=== PATIENT | male | born 1945 | race Caucasian/White ===

== ENCOUNTER → 2017-03-27 | Outpatient (CLI) | payer MEDICARE, BC ==
[~2017-03-27] MED LIST: ASPI325T33 PO; ASPI81 PO; ASPI81TA81 PO; ATOR40TA16 PO; CARV10 PO; CARV6.252 PO; CENTCHW4 CHEW; CHLO25TA2 PO; CLOP75 PO; COUM5TAB PO; ESOM1CAP16 PO; FERR324T4 PO; FLUO20CA12 PO; FOLI-30 PO; FOLI1TAB PO; HYDR-3583 PO; LORT7.5T3 PO; NAPR-803 PO; NEXI40CA PO; OXYC1TAB63 PO; PRIN20TA2 PO; RANEXA; SIMV20 PO; SULF500 PO; TAB-TAB PO; TRAZ100T10 PO; VALS1TAB70 PO; VITA100T54 PO
[2017-03-27 10:12] LABS: AUTOMATED NEUTROPHIL # 2.4 TH/MM3 (1.8-7.7); BASOPHIL % 0.9 % (0.0-2.0); EOSINOPHIL # 0.1 TH/MM3 (0-0.4); EOSINOPHIL % 3.1 % (0.0-4.0); HEMATOCRIT 32.5 % (39.0-51.0); MEAN CELL VOLUME 95.9 FL (80.0-100.0); MEAN CORPUSCULAR HEMOGLOBIN 32.6 PG (27.0-34.0); MONO % 14.1 % (0.0-8.0); MONOCYTE # 0.6 TH/MM3 (0-0.9); NEUT % 58.9 % (16.0-70.0); PLATELET COUNT 188 TH/MM3 (150-450); RED BLOOD COUNT 3.39 MIL/MM3 (4.50-5.90); RED CELL DISTRIBUTION WIDTH 13.9 % (11.6-17.2); WHITE BLOOD COUNT 4.1 TH/MM3 (4.0-11.0)
[2017-03-27 10:23] LABS: BLOOD, URINE NEG (NEG); GLUCOSE,URINE NEG (NEG); HYALINE CAST, URINE 4 /lpf (RARE); KETONE, URINE NEG (NEG); MUCUS URINE FEW /lpf (OCC); NITRITE,URINE NEG (NEG); PH, URINE 5.5 (5.0-8.5); SQUAMOUS EPITHELIAL CELL URINE <1 /hpf (0-5); URINE COLOR YELLOW (YELLW/STRAW); URINE LEUKOCYTE ESTERASE NEG (NEG)
[2017-03-27 10:25] LABS: PROTHROMBIN TIME - PATIENT 10.4 SEC (9.8-11.6)
[2017-03-27 10:28] LABS: BILIRUBIN, URINE NEG (NEG)
[2017-03-27 10:44] LABS: BICARBONATE 26.4 MEQ/L (21.0-32.0); CALCIUM 8.7 MG/DL (8.5-10.1); CREATININE 1.6 MG/DL (0.60-1.30)
--- NOTE | 2017-03-27 14:51 | EKG ---
Date Performed: 03/27/2017 Time Performed: 09:22:08 PTAGE: 72 years EKG: Sinus rhythm . Possible anterior infarct - age undetermined Lateral T wave changes are nonspecific Since previous tracing, no significant change noted Abnormal ECG PREVIOUS TRACING : 08/07/2009 07.03 DOCTOR: Antoine Lucero Interpretating Date/Time 03/27/2017 14:50:36
== END ==
LOC: CPRE 08:21
PROVIDERS: ATTEND Orthopaedic Surgery Orthopaedic Surgery of the Spine
DX: Z01.812 Encounter for preprocedural laboratory examination (principal); Z01.810 Encounter for preprocedural cardiovascular examination; M16.12 Unilateral primary osteoarthritis, left hip; R94.31 Abnormal electrocardiogram [ECG] [EKG]; Z79.01 Long term (current) use of anticoagulants
CPT/HCPCS: 36415; 80048; 81001; 85025; 85610; 85730; 93005

== ENCOUNTER 2017-04-07 06:13 | Inpatient (IN) | payer MEDICARE, BC ==
[~2017-04-07] VITALS: Ht 180.3 cm; Wt 130.8 kg
[~2017-04-07 06:13] MED LIST changes: -ASPI325T33 PO; -ASPI81 PO; -CARV10 PO; -CLOP75 PO; -COUM5TAB PO; -FERR324T4 PO; -FOLI1TAB PO; -HYDR-3583 PO; -LORT7.5T3 PO; -NEXI40CA PO; -OXYC1TAB63 PO; -PRIN20TA2 PO; -RANEXA; -SIMV20 PO; -SULF500 PO; -TAB-TAB PO
[2017-04-07] MEDS ORDERED: GENTAMICIN SULFATE 80 MG/2 ML VIAL ONE (06:26)
[2017-04-07] MEDS ORDERED: CHLORHEXIDINE GLUCONATE 2 % 1 PACK (2 CLOTHS) TOPICAL PRN (07:15)
[2017-04-07] MEDS ORDERED: ceFAZolin 2 GM PREMIX 50 ML IV SCH (07:15)
[2017-04-07] MEDS ORDERED: SODIUM CHLORID 0.9% 500 ML IV PRN (07:15)
[2017-04-07] MEDS ORDERED: LACTATED RINGER'S 1000 ML IV PRN (07:15)
[2017-04-07] MEDS ORDERED: VANCOMYCIN 1000 MG/NS 250 ML (for <70 kg) IV SCH ×2 (07:15)
[2017-04-07] MEDS ORDERED: POVIDONE IODINE 5% (ANTISEPSIS KIT) 4 APPLICATIONS EACH NARE PRN (07:15)
[2017-04-07] MEDS ORDERED: CHLORHEXIDINE GLUCONATE 4% SOLN 120 ML BTL TOPICAL SCH (07:15)
[2017-04-07] MEDS ORDERED: METOPROLOL TARTRATE 25 MG TAB PO PRN (07:15)
[2017-04-07] MEDS ORDERED: ACETAMINOPHEN 1000 MG/100 ML 100 ML IV ONE (08:04)
[2017-04-07] MEDS ORDERED: SODIUM CHLORIDE 0.9% IV SCH ×2 (08:30→12:00)
[2017-04-07] MEDS ORDERED: EXPAREL PERI-ARTICULAR INJECTION (TOTAL VOL. 60 ML) P-ARTICULR SCH ×2 (08:30)
[2017-04-07] MEDS ORDERED: TRANEXAMIC ACID IV SCH ×2 (08:30→12:00)
[2017-04-07] MEDS ORDERED: ceFAZolin INJ 1,000 MG VIAL ONE (09:25)
--- NOTE | 2017-04-07 11:27 | PD.OP ---
cc: Clive Mckeon MD Operative Report Date of Surgery: Apr 07, 2017 Preoperative Diagnosis: Osteoarthritis left hip Postoperative Diagnosis: Same Procedure: Left total hip replacement arthroplasty Anesthesia: Gen. Surgeon: Clive Mckeon Tow Picker(s): OLVIN Lau Operation and Findings: EBL: 500 cc INDICATION: This patient presents with significant hip pain related to severe osteoarthritis of the left hip. Despite extensive conservative care this patient continues to be painful and now presents for surgical treatment. NOTE: Likely OLVIN Lau was present for the entire surgical procedure as my patent legal assistant. In my medical opinion her skill and care was necessary for the proper management of this patient. COMPONENTS: COMPANY: [email or web address] CUP: [place], 54 mm, 100 series, gription surface LINER: Altrx 36 mm, neutral STEM: [place], size 14, standard offset, hydroxyapatite-coated HEAD: 36 mm, +5, 12/14 taper PROCEDURE: This patient was brought to the operating room and anesthetized in the supine position and positioned on the fracture table with both legs held extended. The left hip and leg was scrubbed with alcohol followed by Hibiclens followed by ChloraPrep and draped sterilely. Antibiotics were given within routine time window and a timeout was done. A 4 inch incision was made starting 2 cm distal and 2 cm lateral to the anterior superior iliac spine. The fascia rzaa was opened longitudinally. The interval between the fascia raza and the rectus was opened down to the capsule of the hip joint. Retractors were positioned allowing good visualization of the capsule. This was opened longitudinally and flaps were created. Stay sutures were utilized. Exposure was excellent. The neck was cut at the proper location using fluoroscopy as a guide. The head was removed. Deep retractors were positioned allowing good visualization of the acetabulum. Acetabulum was deepened down to the floor starting with a proper size reamer and reaming up to 53 mm. A trial was utilized. Fluoroscopy was used to check position and confirmed satisfactory alignment. The rim was reamed with a 54 mm reamer and the final cup was positioned in approximately 20 of anteversion and 40-45 of abduction. Position was satisfactory. A single hole eliminator was positioned followed by the final liner. The lifting hook was utilized. The leg was dropped to the floor, maximally externally rotated and brought across the midline. Retractors were positioned. A box osteotome was utilized followed by progressive broaching to the proper stem size. Trial reduction showed excellent alignment and fit. With 60 of external rotation the leg was dropped to the floor without evidence of anterior subluxation. The wound was irrigated. The final stem was inserted and was found to be very stable. There was a fracture of the greater trochanter extending posteriorly. A super cable was placed around this and tightened according to supervisor patching's recommendations. The fracture was nondisplaced at that time. The final reduction was completed with a +5 neck length. The final reduction using the final head. Stability was as previously noted. Intraoperative x-rays were taken. The wound was irrigated copiously. Hemostasis was controlled. Local anesthesia was utilized. The capsule was repaired with #2 Tycron sutures. The fascia raza was repaired with running 0 PDS on a loop. Subcutaneous tissue was approximated with 2-0 Vicryl and skin with running intradermal 3-0 Vicryl followed by Steri-Strips. A sterile dressing was applied. The patient was awakened and taken to the recovery room in satisfactory condition. FINDINGS: There was fatigue of the posterior portion of the greater trochanter extending along the posterior portion of the femoral neck. We placed a super cable around this. This was then nondisplaced. The hip appeared to be quite stable. No complication was appreciated otherwise. Clive Mckeon MD Apr 07, 2017 11:27
[2017-04-07] MEDS ORDERED: HYDR-3583 PO (11:28)
[2017-04-07] MEDS ORDERED: ASPI325T33 PO (11:28)
[2017-04-07] MEDS ORDERED: ASPIRIN 81 MG CHEW TAB CHEW ONE (11:30)
[2017-04-07] MEDS ORDERED: Post-op Orders (for Pharmacy) XX ONE (11:30)
[2017-04-07] MEDS ORDERED: ACETAMINOPHEN/HYDROcodone 325 MG/10 MG TAB PO PRN (11:30)
[2017-04-07] MEDS ORDERED: NALOXONE HCL 0.4 MG/ML AMP IV PUSH PRN (11:30)
[2017-04-07] MEDS ORDERED: MISCELLANEOUS NURSING INFORMATION XX PRN (11:30)
[2017-04-07] MEDS ORDERED: MISCELLANEOUS PHARMACY INFORMATION XX ONE (11:30)
[2017-04-07] MEDS ORDERED: ONDANSETRON HCL 4 MG/2 ML VIAL IV ONE (12:00)
[2017-04-07] MEDS ORDERED: LIDOCAINE HCL 1% PF 5 ML SYRINGE OTHER ONE (12:00)
[2017-04-07] MEDS ORDERED: ROCURONIUM INJ 50 MG/5 ML SYRINGE IV PUSH ONE (12:00)
[2017-04-07] MEDS ORDERED: GLYCOPYRROLATE 1 MG/5 ML SYRINGE IV PUSH ONE (12:00)
[2017-04-07] MEDS ORDERED: PHENYLEPH/NS 1000 MCG/10 ML SYR IV ONE (12:00)
[2017-04-07] MEDS ORDERED: DO NOT ADM ANY ANTICOAGULANT DRUGS PRN (12:00)
[2017-04-07] MEDS ORDERED: DEXAMETHASONE SOD PHOS 4 MG/ML VIAL IV ONE (12:00)
[2017-04-07] MEDS ORDERED: ePHEDrine/NS 25 MG/5 ML SYRINGE IV ONE (12:00)
[2017-04-07] MEDS ORDERED: PROPOFOL 200 MG/20 ML AMP IV ONE (12:00)
[2017-04-07] MEDS ORDERED: LACTATED RINGER'S 1000 ML INJ 2,000 ML IV ONE (12:00)
[2017-04-07] MEDS ORDERED: HYDROmorphone HCL PF 1 MG/ML VIAL ONE (12:03)
[2017-04-07] MEDS ORDERED: *HYDROmorphone PF 1 MG VIAL PERIprocedural Use ONLY ONE ×2 (12:07→12:22)
[2017-04-07] MEDS ORDERED: MIDAZOLAM HCL 2 MG/2 ML VIAL ONE (12:12)
[2017-04-07] MEDS: LACTATED RINGER'S 1000 ML INJ 1,000 ML IV SCH (12:15)
[2017-04-07] MEDS: MORPHINE SULFATE 30 MG/30 ML PCA IV SCH (13:14)
[2017-04-07] MEDS: PCA - TOTAL MG MORPHINE DELIVERED PER SHIFT SCH ×2 (14:00→21:09)
--- NOTE | 2017-04-07 15:10 | RADRPT ---
EXAM DATE/TIME: 04/07/2017 09:27 [facility] COMPARISON: No previous studies available for comparison. INDICATIONS : Left total hip replacement. MEDICAL HISTORY : None. SURGICAL HISTORY : None. ENCOUNTER: Initial ACUITY: 1 day PAIN SCORE: Non-responsive. LOCATION: Left hip FINDINGS: 2 fluoroscopic images of the left hip demonstrate hip arthroplasty in anatomic alignment and well-pos itioned. Arthroplasty components appear intact CONCLUSION: 1. Left hip arthroplasty in anatomic alignment, as above. Nando Collins MD on April 07, 2017 at 15:05 Board Certified Radiologist. This report was verified electronically.
[2017-04-07 16:00] VITALS: BP 158/71; PULSE 86; RESP 18; TEMP 96.4; O2SAT 98
[2017-04-07] MEDS: ACETAMINOPHEN/HYDROcodone 325 MG/10 MG TAB PO PRN (16:21)
[2017-04-07] MEDS: ATORVASTATIN 40 MG TAB PO SCH (21:06)
[2017-04-07] MEDS: CARVEDILOL 6.25 MG TAB PO SCH (21:06)
[2017-04-07] MEDS: traZODone HCL 100 MG TAB PO SCH (21:06)
[2017-04-07] MEDS: ASPIRIN EC 81 MG TABEC PO SCH (21:06)
[2017-04-07] MEDS: FLUoxetine HCL 20 MG CAP PO SCH (21:06)
[2017-04-07] MEDS: MAGNESIUM HYDROXIDE SUSP 30 ML CUP PO SCH (21:07)
[2017-04-07] MEDS: SENNOSIDES 8.6 MG TAB PO SCH (21:07)
[2017-04-07 22:07] VITALS: BP 133/66; PULSE 82; RESP 16; TEMP 96.4; O2SAT 97
--- NOTE | 2017-04-07 23:28 | HHI.DS ---
Discharge Summary Admission Date Apr 07, 2017 at 06:13 Discharge Date: Apr 10, 2017 Admitting Diagnosis see below Diagnosis: (1) Osteoarthritis of left hip Diagnosis: Principal ICD Codes: M16.12 - Unilateral primary osteoarthritis, left hip Procedures Left total hip arthroplasty, direct anterior approach Brief History This is a 72 year old male patient with a history of right total hip arthroplasty 7-8 years ago. He began having increasing left hip pain. He started pursuing gym exercises 2 years ago in addition to over the counter medications. He was prescribed Naproxen 500mg BID. He discontinued going to the gym when his pain escalated and he acquired a limp due to this hip pain. Imaging studies were updated and he was found to have advancing arthritis of his left hip. Surgical treatment was recommended and he elected to move forward with planning. He now presents for the above. Hospital Course Surgical treatment was performed on the day of admission without complication. He recovered well in PACU and was transferred to the orthopaedic floor. Pain was controlled with IV and oral medications. He was begun on ASA 81mg BID for dvt prophylaxis. He was compliant with all restrictions but struggled with independent activity and required multiple person assist for basic activity. After 3 days he was found to be medically stable and discharged to a custodial facility. He was given prescriptions for Percocet 5/325mg, ASA 81mg BID and Ativan 0.5mg TID. He was encouraged to pursue a high fiber diet and to continue with daily physical therapy included maintaining TTWBing on his operative leg for 4-6 weeks postop. Pt Condition on Discharge: Stable Discharge Disposition: Discharge to SNF Discharge Instructions Diet Instructions: As Tolerated, No Restrictions, High Fiber Diet Activities You Can Perform: Toe Touch Weight Bearing Activities to Avoid: Strenuous Activity New Medications: Commode 3-in-1 (Commode 3-in-1) 1 Mis Mis EA .ROUTE DIRECTED, #1 0 Refills Lorazepam (Ativan) 0.5 Mg Tab 0.5 MG PO Q8H for Anxiety, #50 TAB 0 Refills Walker with Front Wheels (Walker with Front Wheels) 1 Mis Mis EA .ROUTE DIRECTED, #[address] (Aspirin EC) 325 Mg Tabdr 81 MG PO BID for Prevent Blood Clot, #60 TAB Oxycodone HCl/Acetaminophen (Oxycodone-Acetaminophen 5-325) 5 Mg-325 Mg Tablet 1 TAB PO Q4H PRN for pain for 7 Days, #42 TAB 0 Refills Continued Medications: Aspirin DR (Aspir-81) 81 Mg Tabdr 81 MG PO DAILY Atorvastatin (Atorvastatin) 40 Mg Tab 40 MG PO HS for Cholesterol Management, #30 TAB 0 Refills Carvedilol (Carvedilol) 6.25 Mg Tab 6.25 MG PO BID, #60 TAB 0 Refills Chlorthalidone (Chlorthalidone) 25 Mg Tab 12.5 MG PO DAILY, TAB [address] (Esomeprazole DR) 40 Mg Capdr 40 MG PO DAILY, #30 CAP 0 Refills Fluoxetine (Fluoxetine) 20 Mg Capsule 20 MG PO BID, #30 CAP 0 Refills Folic Acid-Cholecalciferol (Roxifol-D) 1-500 mg-Unit Tab 1 TAB PO DAILY for Nutritional Supplement, TAB 0 Refills Multiple Vitamins W/ Minerals (Centrum) 1 Chew 1 TAB CHEW DAILY for Nutritional Supplement, TAB 0 Refills Naproxen Sodium DS (Naproxen Sodium DS) 550 Mg Tab 550 MG PO BID, #60 TAB 0 Refills Thiamine (Vitamin B-1) 100 Mg Tab 100 MG PO DAILY for Nutritional Supplement, TAB 0 Refills Trazodone (Trazodone) 100 Mg Tablet 100 MG PO HS for Control Depression, #30 TAB 0 Refills Valsartan (Valsartan) 320 Mg Tab 320 MG PO DAILY, #30 TAB 0 Refills Kiki Mixon Apr 07, 2017 23:28
--- NOTE | 2017-04-07 23:29 | HHI.DCPOC ---
Discharge Care Plan Diagnosis: (1) Osteoarthritis of left hip Your Health Problems Are: Difficulty with ADL Incision/Drains Swelling Additional Problems Weightbearing limitation on left leg Goals to Promote Your Health * To prevent worsening of your condition and complications * To maintain your health at the optimal level Directions to Meet Your Goals Take your medications as prescribed Follow your dietary instruction Follow activity as directed Keep your appointments as scheduled Take your immunizations and boosters as scheduled If your symptoms worsen call your PCP, if no PCP go to Urgent Care Center or Emergency Room Smoking is Dangerous to Your Health. Avoid second hand smoke Call the 24-hour hour crisis hotline for domestic abuse at [facility] Apr 07, 2017 23:29
--- NOTE | 2017-04-07 23:33 | HHI.FF ---
Face to Face Verification Diagnosis: (1) Osteoarthritis of left hip Physical Therapy Gait training, Safety evaluation, Transfer training, bed to chair Hip: Total hip, Other Left LE Weight Bearing: Toe Touch WB Additional Instructions PT 4 days/wk for 2 weeks. TTWBing Left LE. Anterior ROSS protocol, left. Walker for assistance. Nursing RN Days per Week: 2 x Week(s): 1 Dressing Changes: Do not change dressing Additional Instructions Vitals assessment. Dressing assessment - do not change hip dressing unless saturated. I have seen patient Kwame Acevedo on 04/07/17. My clinical findings support the need for the requested home health care services because: Limited ability to care for self High risk of falls I certify that my clinical findings support that this patient is homebound because: Post-op weakness Unsteady gait/balance Kiki Mixon Apr 07, 2017 23:33
[2017-04-07] MEDS ORDERED: WALKER WHEELS/F1 MIS (23:34)
[2017-04-07] MEDS ORDERED: COMMODE 3-IN-11 MIS (23:35)
[2017-04-08] VITALS (7 sets, daily range): BP systolic 112–135; BP diastolic 57–67; PULSE 89–97; RESP 16–18; TEMP 95–99.4; O2SAT 94–96
[2017-04-08] MEDS: LACTATED RINGER'S 1000 ML INJ 1,000 ML IV SCH ×2 (01:26→13:00)
[2017-04-08] MEDS: ACETAMINOPHEN/HYDROcodone 325 MG/10 MG TAB PO PRN ×2 (04:53→11:10)
[2017-04-08] MEDS: MORPHINE SULFATE 30 MG/30 ML PCA IV SCH (05:01)
[2017-04-08 07:15] LABS: HEMATOCRIT 28.5 % (39.0-51.0); HEMOGLOBIN 9.6 GM/DL (13.0-17.0)
[2017-04-08] MEDS: PCA - TOTAL MG MORPHINE DELIVERED PER SHIFT SCH (07:44)
[2017-04-08] MEDS: PANTOPRAZOLE SOD 40 MG DELAYED RELEASE TAB PO SCH (08:47)
[2017-04-08] MEDS: VALSARTAN 160 MG TAB PO SCH (08:47)
[2017-04-08] MEDS: FLUoxetine HCL 20 MG CAP PO SCH ×2 (08:48→20:36)
[2017-04-08] MEDS: MAGNESIUM HYDROXIDE SUSP 30 ML CUP PO SCH ×2 (08:48→20:36)
[2017-04-08] MEDS: ASPIRIN EC 81 MG TABEC PO SCH ×2 (08:48→20:36)
[2017-04-08] MEDS: CARVEDILOL 6.25 MG TAB PO SCH ×2 (08:48→20:36)
[2017-04-08] MEDS ORDERED: CHLORTHALIDONE 12.5 MG PO SCH (09:00)
--- NOTE | 2017-04-08 09:52 | PD.ORT.PN ---
Subjective Subjective Remarks Moderate pain into the hip. Notes sharp pain left heel. His RN states he has been using quite a bit of morphine. No complaints of nausea. Questions about surgery. Would prefer d/c home w c if possible. No new CP or SOB. Objective Vitals Vital Signs Date Time Temp Pulse Resp B/P (MAP) Pulse Ox O2 Delivery O2 Flow Rate FiO2 04/08/17 07:44 18 04/08/17 06:22 97.6 90 16 133/67 (89) 96 04/08/17 05:20 18 04/08/17 05:01 18 04/08/17 00:00 95.0 90 16 127/65 (85) 95 04/07/17 22:07 96.4 82 16 133/66 (88) 97 04/07/17 21:09 16 04/07/17 17:22 18 04/07/17 16:00 92 14 148/64 (92) 97 Nasal Cannula 2 04/07/17 16:00 96.4 86 18 158/71 (100) 98 04/07/17 15:00 87 14 156/67 (96) 98 Nasal Cannula 2 04/07/17 14:00 103 14 102/66 (78) 97 Nasal Cannula 2 04/07/17 13:15 76 14 153/72 (99) 99 Nasal Cannula 2 04/07/17 13:14 14 04/07/17 13:00 78 14 153/68 (96) 100 Nasal Cannula 2 04/07/17 12:45 80 14 166/77 (106) 100 Nasal Cannula 2 04/07/17 12:30 84 14 139/65 (89) 96 Nasal Cannula 2 04/07/17 12:15 86 14 153/68 (96) 99 Nasal Cannula 2 04/07/17 12:01 97.6 89 14 139/63 (88) 100 Nasal Cannula 2 I/O 04/07/17 04/07/17 04/07/17 04/08/17 04/08/17 04/08/17 07:00 15:00 23:00 07:00 15:00 23:00 Intake Total 2200 ml 600 ml 1585 ml Output Total 700 ml 770 ml 1000 ml Balance 1500 ml -170 ml 585 ml Intake Oral 500 ml 500 ml IV Total 2200 ml 100 ml 1085 ml Output Urine Total 200 ml 350 ml 1000 ml Estimated Blood Loss 500 ml Other 420 ml Result Diagram: 04/08/17 0635 Procedures Left total hip arthroplasty, direct anterior approach Objective Remarks Laying in bed NAD VSS LLE Hip dressing c/d/i, moderate swelling, no erythema Thigh supple, neg homans distal +motor at, +sens, +nvi Some point tenderness left posterior calcaneus near achilles insertion, GS strength 5/5 Assessment & Plan Ortho Post Op Day #: 1 Problem List: (1) Osteoarthritis of left hip ICD Codes: M16.12 - Unilateral primary osteoarthritis, left hip Qualifiers: Qualified Codes: M16.12 - Unilateral primary osteoarthritis, left hip Assessment and Plan pod#1 s/p L ROSS, anterior, repair/cable greater troch Ortho stable. D/C TRANSCRIPTION this afternoon - change to po pain meds. Hx of alcoholism. Ok for one beer per meal or 3 beers per day. Elevate left leg at knee to avoid pressure point left heel. Ice left hip. IS encouraged. ASA 81mg bid for dvt prevention. Hold dressing changes unless saturated. PT - TTWBing LLE. Anterior ROSS protocol. D/C planning, likely [facility] tomorrow if stable. DME written. Kiki Mixon Apr 08, 2017 09:52
[2017-04-08] MEDS ORDERED: oxyCODONE/ACETAMINOPHEN 5 MG/325 MG TAB PO PRN (13:30)
[2017-04-08] MEDS: SENNOSIDES 8.6 MG TAB PO SCH (20:36)
[2017-04-08] MEDS: traZODone HCL 100 MG TAB PO SCH (20:36)
[2017-04-08] MEDS: ATORVASTATIN 40 MG TAB PO SCH (20:37)
[2017-04-09] VITALS (8 sets, daily range): BP systolic 110–132; BP diastolic 48–62; PULSE 86–99; RESP 18–19; TEMP 98–99.7; O2SAT 92–99
[2017-04-09] MEDS: LACTATED RINGER'S 1000 ML INJ 1,000 ML IV SCH ×3 (01:30→20:38)
[2017-04-09] MEDS ORDERED: OXYC1TAB63 PO (08:32)
--- NOTE | 2017-04-09 08:37 | PD.ORT.PN ---
Subjective Subjective Remarks Struggled with transitions last night. Needed moderate assist for basic movements, using restroom, etc. PO meds changed to percocet which helped. He had a BM. Urinating well. No other complaints. Would prefer d[facility] tomorrow due to need for assistance. No new CP or SOB. Objective Vitals Vital Signs Date Time Temp Pulse Resp B/P (MAP) Pulse Ox O2 Delivery O2 Flow Rate FiO2 04/09/17 08:00 98.4 91 19 125/50 (75) 92 04/09/17 04:10 99.7 99 18 132/62 (85) 95 04/09/17 00:06 99.3 98 18 131/60 (83) 95 04/08/17 20:10 98.9 90 18 135/59 (84) 94 04/08/17 17:50 96 21 04/08/17 16:00 99.4 89 16 122/58 (79) 95 04/08/17 12:00 97.3 89 16 116/64 (81) 95 04/08/17 12:00 96 I/O 04/08/17 04/08/17 04/08/17 04/09/17 04/09/17 04/09/17 07:00 15:00 23:00 07:00 15:00 23:00 Intake Total 1585 ml 840 ml 240 ml Output Total 1000 ml 600 ml 600 ml Balance 585 ml 240 ml -360 ml Intake Oral 500 ml 840 ml 240 ml IV Total 1085 ml Output Urine Total 1000 ml 600 ml 600 ml Bladder Scan Volume Amount 380 ml # Bowel Movements 0 0 Result Diagram: 04/08/17 0635 Procedures Left total hip arthroplasty, direct anterior approach Objective Remarks Sitting up in chair, NAD VSS LLE Hip dressing c/d/i, moderate swelling, no erythema Thigh supple, neg homans distal +motor at, +sens, +nvi Less tenderness left posterior calcaneus near achilles insertion, GS strength 5/5 Assessment & Plan Ortho Post Op Day #: 2 Problem List: (1) Osteoarthritis of left hip ICD Codes: M16.12 - Unilateral primary osteoarthritis, left hip Qualifiers: Qualified Codes: M16.12 - Unilateral primary osteoarthritis, left hip Assessment and Plan pod#2 s/p L ROSS, anterior, repair/cable greater troch Ortho stable. Pain slightly improved. PO pain meds - changed to Percocet 5mg. Hx of alcoholism. Ok for one beer per meal or 3 beers per day. Elevate left leg at knee to avoid pressure point left heel. Ice left hip. IS encouraged. ASA 81mg bid for dvt prevention. Hold dressing changes unless saturated. PT - TTWBing LLE. Anterior ROSS protocol. D/C planning, likely [facility] tomorrow/Thu. Would like to avoid rehab if possible. DME written. Kiki Mixon Apr 09, 2017 08:37
[2017-04-09] MEDS: oxyCODONE/ACETAMINOPHEN 10 MG/325 MG TAB PO PRN ×3 (08:42→20:37)
[2017-04-09] MEDS: VALSARTAN 160 MG TAB PO SCH (08:42)
[2017-04-09] MEDS: CARVEDILOL 6.25 MG TAB PO SCH ×2 (08:42→20:38)
[2017-04-09] MEDS: FLUoxetine HCL 20 MG CAP PO SCH ×2 (08:42→20:37)
[2017-04-09] MEDS: PANTOPRAZOLE SOD 40 MG DELAYED RELEASE TAB PO SCH (08:42)
[2017-04-09] MEDS: ASPIRIN EC 81 MG TABEC PO SCH ×2 (08:43→20:37)
[2017-04-09] MEDS: MAGNESIUM HYDROXIDE SUSP 30 ML CUP PO SCH ×2 (08:45→20:38)
[2017-04-09] MEDS: ATORVASTATIN 40 MG TAB PO SCH (20:37)
[2017-04-09] MEDS: traZODone HCL 100 MG TAB PO SCH (20:38)
[2017-04-09] MEDS: SENNOSIDES 8.6 MG TAB PO SCH (20:38)
[2017-04-10 00:10] VITALS: BP 137/51; PULSE 90; RESP 18; TEMP 100.5; O2SAT 95
[2017-04-10 04:03] VITALS: BP 132/65; PULSE 86; RESP 18; TEMP 99.1; O2SAT 95
[2017-04-10 08:00] VITALS: BP 151/68; PULSE 88; RESP 18; TEMP 98.4; O2SAT 93
--- NOTE | 2017-04-10 08:18 | PD.ORT.PN ---
Subjective Subjective Remarks No complaints. Concerns voiced from the nursing staff that he may be exhibiting some early signs of alcohol withdrawal. The patient appears appropriate and non-agitated at this time. Does not feel he can go home and is requesting intermediate facility Objective Vitals Vital Signs Date Time Temp Pulse Resp B/P (MAP) Pulse Ox O2 Delivery O2 Flow Rate FiO2 04/10/17 04:03 99.1 86 18 132/65 (87) 95 04/10/17 00:10 100.5 90 18 137/51 (79) 95 04/09/17 20:10 99.5 87 18 123/62 (82) 95 04/09/17 18:28 99 21 04/09/17 15:52 99.2 91 19 132/58 (82) 99 04/09/17 11:38 98.0 86 19 110/48 (68) 97 04/09/17 10:22 92 I/O 04/09/17 04/09/17 04/09/17 04/10/17 04/10/17 04/10/17 07:00 15:00 23:00 07:00 15:00 23:00 Intake Total 240 ml 950 ml 240 ml 240 ml Output Total 600 ml 100 ml 200 ml 400 ml Balance -360 ml 850 ml 40 ml -160 ml Intake Oral 240 ml 950 ml 240 ml 240 ml Output Urine Total 600 ml 100 ml 200 ml 400 ml # Voids 3 # Bowel Movements 0 1 1 0 Result Diagram: 04/08/17 0635 Procedures Left total hip arthroplasty, direct anterior approach Objective Remarks Sitting up in chair, NAD VSS LLE Hip dressing c/d/i, moderate swelling, no erythema Thigh supple, neg homans distal +motor at, +sens, +nvi Less tenderness left posterior calcaneus near achilles insertion, GS strength 5/5 Assessment & Plan Ortho Post Op Day #: 3 Problem List: (1) Osteoarthritis of left hip ICD Codes: M16.12 - Unilateral primary osteoarthritis, left hip Qualifiers: Qualified Codes: M16.12 - Unilateral primary osteoarthritis, left hip Assessment and Plan pod#3 s/p L ROSS, anterior, repair/cable greater troch PLAN: Percocet for pain. Ativan 0.5 mg every 8 hours for 2 weeks. No dressing change. Toe touch weightbearing left leg. Discharge to SNF today. Return to the office in 2 weeks for repeat x-ray and dressing change. Aspirin for anticoagulation Clive Mckeon MD Apr 10, 2017 08:18
--- NOTE | 2017-04-10 08:19 | PQ ---
Physician Query Response Document PATIENT: CHIO GOMES : 1945 ADMIT DATE: 04/07/2017 6:13 AM DISCH DATE: RESPONDING PROVIDER #: [email or web address] QUERY TEXT: Cause and Effect Relationship Please clarify in documentation the relationship, if any, between _LT GREATER TROCHANTER FRACTURE_and _SURGICAL PROCEDURE OF LT TOTAL HIP ARTHROPLASTY__ Such as - FRACTURE WAS: -- Complication of surgical procedure -- Intraoperative finding - not known prior to surgery -- Condition was due to or associated with underlying medical condition and was present on admission -- Unrelated to each other -- Other, please specify The patient's Clinical Indicators include: 04/07/17 PER OPERATIVE REPORT: There was a fracture of the greater trochanter extending posteriorly. A super cable was placed aroun d this and tightened according to bank clerk's recommendations. The fracture was nondisplaced at t hat time. Query created by: Megan Magdaleno on 04/08/2017 9:30 AM RESPONSE TEXT: Fracture of the greater trochanter was related to the surgical procedure. Is a known possible consequ ence of surgical treatment of total hip replacement. This was addressed in the operative record and t reated with a special cable for purpose of stabilization. Electronically signed by: Clive Marroquin MD 04/10/2017 8:15 AM
[2017-04-10] MEDS ORDERED: LORA-392 PO (08:20)
[2017-04-10] MEDS: LORazepam 0.5 MG TAB PO SCH ×2 (08:30→14:00)
[2017-04-10] MEDS: MAGNESIUM HYDROXIDE SUSP 30 ML CUP PO SCH (09:00)
[2017-04-10] MEDS: FLUoxetine HCL 20 MG CAP PO SCH (09:07)
[2017-04-10] MEDS: VALSARTAN 160 MG TAB PO SCH (09:08)
[2017-04-10] MEDS: PANTOPRAZOLE SOD 40 MG DELAYED RELEASE TAB PO SCH (09:08)
[2017-04-10] MEDS: ASPIRIN EC 81 MG TABEC PO SCH (09:08)
[2017-04-10] MEDS: CARVEDILOL 6.25 MG TAB PO SCH (09:08)
[2017-04-10] MEDS: oxyCODONE/ACETAMINOPHEN 10 MG/325 MG TAB PO PRN ×2 (09:14→15:27)
[2017-04-10 12:00] VITALS: BP 118/58; PULSE 82; RESP 18; TEMP 97; O2SAT 94
== END 2017-04-10 17:05 | DRG 470 ==
LOC: HSDI 06:13 → N06B 16:07
PROVIDERS: ADMIT Orthopaedic Surgery Orthopaedic Surgery of the Spine; ATTEND Orthopaedic Surgery Orthopaedic Surgery of the Spine
PROC: 0QS735Z Reposition Left Upper Femur with External Fixation Device, Percutaneous Approach (ICD-10-PCS; 2017-04-07)
PROC: 0SRB02A Replacement of Left Hip Joint with Metal on Polyethylene Synthetic Substitute, Uncemented, Open Approach (ICD-10-PCS; principal; 2017-04-07 08:28)
DX: M16.12 Unilateral primary osteoarthritis, left hip (principal); Z68.41 Body mass index [BMI] 40.0-44.9, adult; K50.90 Crohn's disease, unspecified, without complications; N18.3 Chronic kidney disease, stage 3 (moderate); M96.662 Fracture of femur following insertion of orthopedic implant, joint prosthesis, or bone plate, left leg; I12.9 Hypertensive chronic kidney disease with stage 1 through stage 4 chronic kidney disease, or unspecified chronic kidney disease; Y83.1 Surgical operation with implant of artificial internal device as the cause of abnormal reaction of the patient, or of later complication, without mention of misadventure at the time of the procedure; I25.10 Atherosclerotic heart disease of native coronary artery without angina pectoris; K21.0 Gastro-esophageal reflux disease with esophagitis; F32.9 Major depressive disorder, single episode, unspecified; E78.00 Pure hypercholesterolemia, unspecified; F10.21 Alcohol dependence, in remission; E66.9 Obesity, unspecified; Z95.1 Presence of aortocoronary bypass graft
CPT/HCPCS: 73502; 76000; 85014; 85018; 86850; 86890; 86900; 86901; 86920; 94150; C1713; C1776; C9290; J0131; J0690; J1100; J1170; J1580; J2250; J2270; J2370; J2405; J3010; J3370; J7050; J7120